=== PATIENT | male | born 1950 | race Hispanic/Latino ===

== ENCOUNTER 2017-12-27 08:40 | Day surgery (SDC) | payer OTHER ==
[2017-12-23 14:58] VITALS: BP 148/67
[2017-12-23 15:00] LABS: BASOPHILS % (AUTO) 0.8 % (0.0-5.0); EOSINOPHILS % (AUTO) 9.7 % (0.0-8.0); HEMATOCRIT 36.9 % (42-54); LYMPHOCYTES % (AUTO) 29.7 % (21.0-51.0); MEAN CORPUSCULAR HEMOGLOBIN 30.2 pg (27.0-33.0); MEAN CORPUSCULAR HGB CONC 32.7 g/dL (32.0-36.0); MEAN CORPUSCULAR VOLUME 92.4 fL (79-99); MONOCYTES % (AUTO) 10.4 % (3.0-13.0); NEUTROPHILS % (AUTO) 49.4 % (40.0-77.0); PLATELET COUNT (AUTO) 183 K/uL (130-400); RED BLOOD CELL COUNT(AUTO) 3.99 MIL/uL (4.50-6.20); RED CELL DISTRIBUTION WIDTH 13.6 % (11.0-15.5)
[2017-12-23 15:12] LABS: CREATININE 2.3 mg/dL (0.5-1.5); POTASSIUM 4.7 mmol/L (3.5-5.1)
[2017-12-23 15:13] LABS: INR 0.95 (0.85-1.15); PARTIAL THROMBOPLASTIN TIME 32.7 SEC (26.3-35.5)
[~2017-12-27] VITALS: Ht 162.6 cm; Wt 66.0 kg
[~2017-12-27 08:40] MED LIST: AMLO5TAB7 PO; ASPI-1005 PO; ATOR40TA71 PO; CARV25TA PO; FOLI1TAB15 PO; FURO40TA5 PO; LOSA100T20 PO; SITA50TA PO; SODIUM CHLORIDE 0.9% 1000ML 1,000 ML IV SCH
[2017-12-27 08:55] VITALS: BP 122/61
[2017-12-27] MEDS ORDERED: LIDOCAINE HCL 1% MDV 50ML VIAL ONE (16:23)
[2017-12-27] MEDS ORDERED: MIDAZOLAM HCL 1 MG/ML 2ML VIAL ONE ×4 (16:23→17:24)
[2017-12-27] MEDS ORDERED: MEPERIDINE-PF 25 MG/ML SYG ONE ×4 (16:23→17:24)
[2017-12-27] MEDS ORDERED: CEFAZOLIN SODIUM 1 GM VIAL ONE (16:24)
[2017-12-27] MEDS ORDERED: BUPIVACAINE/PF 0.25% 50ML VIAL IJ ONE (16:24)
[2017-12-27] MEDS ORDERED: OCTYL 2-CYANOACRYLATE 1 EACH TP ONE (17:45)
[2017-12-27] MEDS ORDERED: SODIUM CHLORIDE 0.9% 1000ML 1,000 ML IV SCH (18:15)
[2017-12-27] MEDS ORDERED: ACETAMINOPHEN 325 MG TAB PO PRN ×2 (18:15)
[2017-12-27] MEDS ORDERED: ACETAMINOPHEN-CODEINE 300/30MG TAB PO PRN ×2 (18:15)
[2017-12-27 18:34] VITALS: BP 112/47
[2017-12-27 19:44] VITALS: BP 104/51
[2017-12-27] MEDS ORDERED: INSULIN HUMULIN R 100 UNIT/ML 3ML SQ SCH (21:00)
[2017-12-27 23:00] VITALS: BP 122/79
== END 2017-12-27 23:08 | disposition home or self-care (01) ==
LOC: DAH 08:40
PROVIDERS: ATTEND Internal Medicine Cardiovascular Disease
DX: Z45.010 Encounter for checking and testing of cardiac pacemaker pulse generator [battery] (principal); I42.9 Cardiomyopathy, unspecified; I65.23 Occlusion and stenosis of bilateral carotid arteries; I50.9 Heart failure, unspecified; Z79.899 Other long term (current) drug therapy; Z79.82 Long term (current) use of aspirin; Z95.810 Presence of automatic (implantable) cardiac defibrillator
CPT/HCPCS: 33264; 36415; 80048; 82948; 85025; 85610; 85730; 93005; A4606; C1882; J0690; J2175 ×4; J2250 ×4; J3490 ×2; J7030; 99156; 99157